=== PATIENT | male | born 1960 | race Caucasian/White ===

== ENCOUNTER 2018-08-08 11:44 | Observation (INO) | payer OTHER ==
--- NOTE | 2018-08-08 12:32 | RAD REPORT ---
EXAM DESCRIPTION: CT - Ct Stroke Brain Wo Cont - 08/08/2018 12:23 pm CLINICAL HISTORY: headache, aphasia, vision problems CVA symptomology COMPARISON: No comparisons TECHNIQUE: All CT scans are performed using dose optimization technique as appropriate and may inclu de automated exposure control or mA/KV adjustment according to patient size. FINDINGS: No intracranial hemorrhage, hydrocephalus or extra-axial fluid collection.No areas of brai n edema or evidence of midline shift. Several small mucous retention cyst or polyps are present left maxillary antrum. The paranasal sinuse s and mastoids are otherwise clear. The calvarium is intact. IMPRESSION: No acute intracranial abnormality. The findings were discussed with KEYANNA Ortega on 08/08/2018 at 12:27 p.m. by telephone.
[2018-08-08 12:55] LABS: Absolute Monocytes 0.5 K/uL (0.1-1.3); Absolute Neutrophil 6.6 K/uL (1.8-8.0); Basophils % 0.6 % (0-1.3); Eosinophils % 0.7 % (0-4.4); Hematocrit 53.4 % (39.6-49.0); Lymphocytes % 11.9 % (15.3-44.8); Monocytes % 6.3 % (3.3-12.3); RBC Red Blood Cell Count 5.76 M/uL (4.33-5.43)
[2018-08-08 12:59] LABS: Protime INR 0.93
--- NOTE | 2018-08-08 13:07 | RAD REPORT ---
EXAM DESCRIPTION: Brenna Single View08/08/2018 12:58 pm CLINICAL HISTORY: Chest pain COMPARISON: 2014 FINDINGS: The lungs appear clear of acute infiltrate. The heart is normal size IMPRESSION: No acute abnormalities displayed
[2018-08-08 13:10] LABS: Potassium 4.6 mmol/L (3.5-5.1)
[2018-08-08] MEDS ORDERED: DIAZEPAM 5 MG TABLET ONE (13:10)
[2018-08-08] MEDS ORDERED: NA CHLORIDE 0.9% 1,000 ML ONE ×2 (14:11→14:13)
[2018-08-08] MEDS ORDERED: LORazepam 2 MG/ML VIAL ONE (14:13)
--- NOTE | 2018-08-08 15:40 | RAD REPORT ---
EXAM DESCRIPTION: MRI - Brain W/Wo Cont - 08/08/2018 3:25 pm CLINICAL HISTORY: Blurred vision COMPARISON: August 08, [address] TECHNIQUE: Axial, sagittal, and coronal magnetic images of the brain were obtained. 20 cc MultiHance administered intravenously FINDINGS: Minimal signal within periventricular and deep white matter may represent ischemic changes secondary to small vessel disease. . The ventricles are normal in caliber. Diffusion-weighted sequences do not demonstrate evidence of an acute infarction. No abnormal enhancement within the brain is seen. An extra-axial fluid collection is not noted. Fluid within the sinuses/mastoids is not seen. Mucus retention cysts within the maxillary sinuses IMPRESSION: No acute intracranial abnormality is noted.
--- NOTE | 2018-08-08 15:43 | RAD REPORT ---
EXAM DESCRIPTION: MRI - MRA Head Wo Cont - 08/08/2018 3:25 pm CLINICAL HISTORY: Syncope COMPARISON: None. TECHNIQUE: Magnetic resonance angiogram was performed. 3D MIPS reconstruction performed FINDINGS: The anterior cerebral, middle cerebral, posterior cerebral, distal internal carotid and ba silar arteries do not demonstrate a significant stenosis. A1 segment of the right anterior cerebral artery is hypoplastic An aneurysm is not displayed. IMPRESSION: No significant abnormality displayed
--- NOTE | 2018-08-08 15:46 | RAD REPORT ---
EXAM DESCRIPTION: MRI - MRA Neck W/Wo Cont - 08/08/2018 3:25 pm CLINICAL HISTORY: Blurred vision COMPARISON: None. TECHNIQUE: Magnetic resonance angiogram of the neck was performed. 20 cc MultiHance was administered intravenously. 3D MIPS reconstruction performed FINDINGS: The common carotid, internal carotid and external carotid arteries do not demonstrate a si gnificant stenosis. An aneurysm is not seen. Mild plaque is present within the carotid arteries Moderate narrowing of proximal right vertebral artery. Left vertebral artery is unremarkable IMPRESSION: Moderate narrowing of the proximal right vertebral artery. Mild plaque within the carotid arteries NASCET criteria used. Mild 0-49% stenosis Moderate 50-69% stenosis Severe 70-99% stenosis
--- NOTE | 2018-08-08 16:11 | ER ---
Nurse's Notes [facility] Name: Carlos Enrique Peña Age: 57 yrs Sex: Male : 1960 Arrival Date: 08/08/2018 Time: 11:46 Bed 19 Private MD: Elvin Valderrama Diagnosis: Transient cerebral ischemic attack, unspecified Presentation: 08/08 11:58 Presenting complaint: Patient states: notice on Monday about 1100 that he was not able sv to get his words out correctly and had a headache all over that lasted about 10 mins. Pt stated he got up today around 0500 and felt fine, drove to work and about 0730 he started have a severe AUGUSTIN all over and now it is behind his left eye and was not able to get his words out correctly again and his vision went white. Pt sent by Dr Valderrama. Transition of care: patient was not received from another setting of care. Onset of symptoms was August 05, 2018. Care prior to arrival: None. 11:58 Method Of Arrival: Ambulatory sv 11:58 Acuity: LAURA 3 sv 12:30 No acute neurological deficit is noted. Pre-hospital glucose is not applicable to this ph patient. Risk Assessment: Do you want to hurt yourself or someone else? Patient reports no desire to harm self or others. Initial Sepsis Screen: Does the patient meet any 2 criteria? No. Patient's initial sepsis screen is negative. Does the patient have a suspected source of infection? No. Patient's initial sepsis screen is negative. Stroke Activation: Symptom onset > 6 hours Physician: Stroke Attending; Name: ; Notified At: ; Arrived At: Physician: Chief Stroke Resident; Name: ; Notified At: ; Arrived At: Physician: Stroke Resident; Name: ; Notified At: ; Arrived At: Physician: ED Attending; Name: ; Notified At: ; Arrived At: Physician: ED Resident; Name: ; Notified At: ; Arrived At: Historical: - Allergies: 12:00 No Known Allergies; sv - PMHx: 12:00 Diabetes - IDDM; sv - PSHx: 12:00 Appendectomy; sv - Immunization history:: Adult Immunizations unknown. - Social history:: Smoking status: Patient/guardian denies using tobacco. - Family history:: not pertinent. - Ebola Screening: : No symptoms or risks identified at this time. - Hospitalizations: : No recent hospitalization is reported. Screenin:28 Abuse screen: Denies threats or abuse. Denies injuries from another. Nutritional ph screening: No deficits noted. Tuberculosis screening: No symptoms or risk factors identified. Fall Risk None identified. Assessment: 12:01 VAN Scoring: Arm Drift: Patients demonstrates NO arm weakness. Patient is VAN Negative. sv Visual Disturbance: No visual disturbance noted. Aphasia: No aphasia noted. Neglect: No neglect noted. 12:30 Pain: Denies pain. ph 13:00 Patient has been NPO before screening. The patient is alert, and able to follow ph commands. The patient does not exhibit slurred or garbled speech. The patient is not exhibiting difficulty speaking. The patient does not exhibit difficulty understanding words. The patient is able to swallow own secretions with no drooling or need for suction. Patient tolerated one teaspoon of water. No drooling, immediate coughing, gurgling, or clearing of the throat was noted. The patient tolerated 90mL of water. No drooling, immediate coughing, gurgling, or clearing of the throat was noted. The patient passed the bedside swallow screening. Oral medications may be given as ordered. Contact Physician for further diet orders. Provider notified of bedside swallow screening results: Skip Stewart MD. 13:00 General: Appears in no apparent distress. comfortable, slender, well groomed, Behavior ph is calm, cooperative, appropriate for age, Denies fever, feeling ill. Neuro: Level of Consciousness is awake, alert, obeys commands, Oriented to person, place, time, situation, Electrotyper Apprentice are equal bilaterally Moves all extremities. Full function Gait is steady, Speech is normal, Facial symmetry appears normal, Facial symmetry: tongue is midline, Pupils are PERRLA, Intact Reports Headache, visual disturbance and difficulty speaking this morning, episode lasted approx 30 min, denies these symptoms at this time. Denies weakness dizziness, difficulty swallowing. 13:00 T-PA (Activase) Screening: Indications: Definite evidence of stroke, ischemic, embolic, ph or hypertensive: No. Treatment will start within 4.5 hours onset of symptoms: No. Contraindications: Patient reports onset of signs and symptoms of stroke greater than 6 hours ago: Yes. Cardiovascular: Denies chest pain, lightheadedness, Capillary refill < 3 seconds in bilateral fingers Patient's skin is warm and dry. Rhythm is sinus rhythm. Respiratory: Airway is patent Respiratory effort is even, unlabored. GI: No signs and/or symptoms were reported involving the gastrointestinal system. Derm: Skin is intact, is healthy with good turgor, Skin is pink, warm \T\ dry. Musculoskeletal: Circulation, motion, and sensation intact. Range of motion: intact in all extremities. 14:00 Reassessment: Patient appears in no apparent distress at this time. Patient and/or ph family updated on plan of care and expected duration. Pain level reassessed. Patient is alert, oriented x 3, equal unlabored respirations, skin warm/dry/pink. Pt taken to MRI. 15:00 Reassessment: Pt remains in radiology for MRI study, family at bedside. 16:30 Reassessment: Patient appears in no apparent distress at this time. Patient and/or ph family updated on plan of care and expected duration. Pain level reassessed. Pt resting quietly w/ eyes closed, respirations even and unlabored, denies pain at this time, SO at bedside. 17:30 Reassessment: Patient appears in no apparent distress at this time. Patient and/or ph family updated on plan of care and expected duration. Pain level reassessed. Patient is alert, oriented x 3, equal unlabored respirations, skin warm/dry/pink. Attempted to call report, placed on hold >5 min, will call again. 17:40 Reassessment: Patient appears in no apparent distress at this time. Report called to farzana Maldonado. Vital Signs: 12:00 BP 138 / 80; Pulse 80; Resp 16; Pulse Ox 98% ; Weight 94.8 kg; Height 5 ft. 10 in. sv (177.80 cm); Pain 3/10; 13:00 BP 137 / 81; Pulse 81; Resp 18; Pulse Ox 98% on R/A; ph 13:59 BP 142 / 72; Pulse 100; Resp 25; Pulse Ox 96% on R/A; mh5 15:30 ph 16:30 BP 127 / 78; Pulse 78; Resp 16; Pulse Ox 98% on R/A; ph 17:03 BP 132 / 82; Pulse 81; Resp 18; Temp 98.0; Pulse Ox 97% on R/A; ph 12:00 Body Mass Index 29.99 (94.80 kg, 177.80 cm) sv 15:[address] ph NIH Stroke Scale Scores: 12:30 NIHSS Score: 0 ph ED Course: 11:46 Patient arrived in ED. mr 11:46 Elvin Valderrama MD is Private Physician. mr 12:00 Triage completed. sv 12:00 Arm band placed on. sv 12:02 Skip Stewart MD is Attending Physician. rn 12:18 CT completed. Patient tolerated procedure well. Patient moved to CT via wheelchair. sj Patient moved back from CT. 12:20 Placed in gown. Bed in low position. Call light in reach. Side rails up X 1. Warm jp3 blanket given. Pillow given. 12:20 monitor car operator on. Pulse ox on. NIBP on. jp3 12:25 CT Stroke Brain w/o Contrast In Process Unspecified. EDMS 12:45 Inserted saline lock: 20 gauge in right antecubital area, using aseptic technique. ph 12:47 Ptt, Activated Sent. jp3 12:48 Protime (+inr) Sent. jp3 12:48 CBC with Diff Sent. jp3 12:48 Basic Metabolic Panel Sent. jp3 12:53 Haley Alcantar, RN is Primary Nurse. ph 12:56 X-ray completed. Portable x-ray completed in exam room. Patient tolerated procedure jb2 well. 12:58 Stroke CXR 1 View In Process Unspecified. EDMS 13:04 Diet: Patient given snack. mh5 15:25 MRA Head Wo Cont In Process Unspecified. EDMS 15:25 Brain W/Wo Cont In Process Unspecified. EDMS 15:25 MRA Neck W/Wo Cont In Process Unspecified. EDMS 16:10 Elvin Valderrama MD is Hospitalizing Provider. rn 18:05 No provider procedures requiring assistance completed. Patient admitted, IV remains in ph place. Administered Medications: 13:04 Drug: Valium 5 mg Route: PO; ph 17:27 Follow up: Response: No adverse reaction ph 14:04 Drug: NS 0.9% 1000 ml Route: IV; Rate: 1000 ml; Site: right antecubital; aj1 15:30 Follow up: Response: No adverse reaction; IV Status: Completed infusion ph 14:05 Drug: Ativan 0.5 mg Route: IVP; Site: right antecubital; aj1 17:27 Follow up: Response: No adverse reaction ph 17:04 Drug: PlaVIX 75 mg Route: PO; ph 17:28 Follow up: Response: No adverse reaction ph Outcome: 16:10 Decision to Hospitalize by Provider. rn 18:07 Patient left the ED. ss 18:07 Admitted to Tele accompanied by tech, family with patient, via wheelchair, with chart. ph 18:07 Condition: stable 18:07 Instructed on the need for admit. NIH Stroke Scale - NIH Stroke Score Date: 08/08/2018 Time: 12:30 Total Score = 0 1a. Level of Consciousness (LOC) - 0(Alert) 1b. Level of Consciousness (LOC) (Year \T\ Age) - 0(Both) 1c. LOC Commands (Open \T\ Closes Eyes/Inventory Associate) - 0(Both) 2. Best Gaze (Lateral Gaze Paresis) - 0(Normal) 3. Visual Field Loss - 0(No visual loss) 4. Facial Palsy - 0(Normal) 5a. Left Arm: Motor (10-second hold) - 0(No drift) 5b. Right Arm: Motor (10-second hold) - 0(No drift) 6a. Left Leg: Motor (5-second hold - always test supine) - 0(No drift) 6b. Right Leg: Motor (5-second hold - always test supine) - 0(No drift) 7. Limb Ataxia (finger/nose \T\ heel/tolentino - test with eyes open) - 0(Absent) 8. Sensory Loss (pinprick arms/legs/face) - 0(Normal) 9. Best Language: Aphasia (description/naming/reading) - 0(No aphasia) 10. Dysarthria (speech clarity - read or repeat words) - 0(Normal) 11. Extinction and Inattention (visual/tactile/auditory/spatial/personal) - 0(No abnormality) Initials: ph Signatures: Dispatcher [employer] EDMS Lashell Marcial RN RN aj1 Verde, Stephanie RN Rose Rodrigez mr Ewing, Valerie Galdamez Roman, MD MD rn Smirch, Shelby, RN RN ss Hall, Patricia, RN RN ph Martinez, Maria 5 Leonardo Botello jp3 Corrections: (The following items were deleted from the chart) 17:37 14:00 Reassessment: Patient appears in no apparent distress at this time. ph Patient and/or family updated on plan of care and expected duration. Pain level reassessed. Patient is alert, oriented x 3, equal unlabored respirations, skin warm/dry/pink. ph 19:46 12:30 General: Appears in no apparent distress. comfortable, slender, well ph groomed, Behavior is calm, cooperative, appropriate for age, Denies fever, feeling ill, ph 19:46 12:30 Neuro: Level of Consciousness is awake, alert, obeys commands, Oriented ph to person, place, time, situation, Electrotyper Apprentice are equal bilaterally Moves all extremities. Full function Gait is steady, Speech is normal, Facial symmetry appears normal, Facial symmetry: tongue is midline, Pupils are PERRLA, Intact Reports Headache, visual disturbance and difficulty speaking this morning, episode lasted approx 30 min, denies these symptoms at this time. ph
--- NOTE | 2018-08-08 16:11 | EDPHYS ---
Physician Documentation [facility] Name: Carlos Enrique Peña Age: 57 yrs Sex: Male : 1960 Arrival Date: 08/08/2018 Time: 11:46 Bed 19 Private MD: Elvin Valderrama ED Physician Skip Stewart HPI: 08/08 12:59 This 57 yrs old Male presents to ER via Ambulatory with complaints of rn Headache, Vision Problem. 12:59 The patient complains of pain to the forehead. rn 12:59 The patient presents to the emergency department with a speech or higher order brain rn function problem, a vision problem. Onset: The symptoms/episode began/occurred 3 day(s) ago. Severity of symptoms: At their worst the symptoms were moderate in the emergency department the symptoms have resolved. Current symptoms: Currently, the patient is not experiencing any symptoms. The patient has experienced similar episodes in the past. Reports 2-3 episodes of vision loss, not able to get the right words out, and headache, no trauma, takes baby aspirin, no hx of [place] or stroke. Currently asymptomatic. Sent by Dr. Valderrama. . Historical: - Allergies: 12:00 No Known Allergies; sv - PMHx: 12:00 Diabetes - IDDM; sv - PSHx: 12:00 Appendectomy; sv - Immunization history:: Adult Immunizations unknown. - Social history:: Smoking status: Patient/guardian denies using tobacco. - Family history:: not pertinent. - Ebola Screening: : No symptoms or risks identified at this time. - Hospitalizations: : No recent hospitalization is reported. ROS: 12:59 Constitutional: Negative for fever, chills, and weight loss, Eyes: Negative for injury, rn pain, redness, and discharge, Neck: Negative for injury, pain, and swelling, Cardiovascular: Negative for chest pain, palpitations, and edema, Respiratory: Negative for shortness of breath, cough, wheezing, and pleuritic chest pain, Abdomen/GI: Negative for abdominal pain, nausea, vomiting, diarrhea, and constipation, MS/Extremity: Negative for injury and deformity, Skin: Negative for injury, rash, and discoloration, Neuro: + headache, + vision deficit, + speech problem, no focal weakness or numbness Exam: 12:58 ECG was reviewed by the Attending Physician. rn 12:59 Constitutional: This is a well developed, well nourished patient who is awake, alert, rn and in no acute distress. Head/Face: Normocephalic, atraumatic. Eyes: Pupils equal round and reactive to light, extra-ocular motions intact. Lids and lashes normal. Conjunctiva and sclera are non-icteric and not injected. Cornea within normal limits. Periorbital areas with no swelling, redness, or edema. Cardiovascular: Regular rate and rhythm. No pulse deficits. Respiratory: Lungs have equal breath sounds bilaterally, clear to auscultation. No increased work of breathing, no retractions or nasal flaring. Abdomen/GI: soft, non-tender MS/ Extremity: Pulses equal, no cyanosis. Neurovascular intact. Full, normal range of motion. Equal circumference. Neuro: Awake and alert, GCS 15, oriented to person, place, time, and situation. Cranial nerves II-XII grossly intact. Motor strength 5/5 in all extremities. Sensory grossly intact. Cerebellar exam normal. Vital Signs: 12:00 BP 138 / 80; Pulse 80; Resp 16; Pulse Ox 98% ; Weight 94.8 kg; Height 5 ft. 10 in. sv (177.80 cm); Pain 3/10; 13:00 BP 137 / 81; Pulse 81; Resp 18; Pulse Ox 98% on R/A; ph 13:59 BP 142 / 72; Pulse 100; Resp 25; Pulse Ox 96% on R/A; mh5 15:30 ph 16:30 BP 127 / 78; Pulse 78; Resp 16; Pulse Ox 98% on R/A; ph 17:03 BP 132 / 82; Pulse 81; Resp 18; Temp 98.0; Pulse Ox 97% on R/A; ph 12:00 Body Mass Index 29.99 (94.80 kg, 177.80 cm) sv 15:[address] ph NIH Stroke Scale Scores: 12:30 NIHSS Score: 0 ph MDM: 12:02 Patient medically screened. rn 12:16 ED course: NIH 0 currently, has stuttering symptoms since Monday, each episode < 30 rn min, and consists of word salad, vision problems, and headache. . 12:39 ED course: No acute finding on ct head, blood work pending, will try to get MRI. rn 14:01 ED course: pt requesting more medication for sedation prior to MRI, states severe rn claustrophobia. . 16:09 Data reviewed: vital signs, nurses notes, lab test result(s), EKG, radiologic studies, rn CT scan, MRI, and as a result, I will admit patient. Counseling: I had a detailed discussion with the patient and/or guardian regarding: the historical points, exam findings, and any diagnostic results supporting the discharge/admit diagnosis, lab results, radiology results, the need for further work-up and treatment in the hospital. Response to treatment: the patient's symptoms have resolved after treatment, the patient's condition has returned to base line, the patient is now symptom free, and as a result, I will admit patient. Admission orders: after a detailed discussion of the patient's condition and case, the admit orders are written by me. ED course: Pt without CVA on MRI, consulted with Dr. Valderrama will admit for TIA/CVA w/u, will place consult for Dr. Marvin. . 08/08 12:03 Order name: Basic Metabolic Panel; Complete Time: 13: rn 08/08 12:03 Order name: CBC with Diff; Complete Time: 13: rn 08/08 12:03 Order name: Protime (+inr); Complete Time: 13: rn 08/08 12:03 Order name: Ptt, Activated; Complete Time: 13: rn 08/08 12:03 Order name: CT Stroke Brain w/o Contrast; Complete Time: 12:39 08/08 12:43 Order name: Glucose, Ancillary Testing; Complete Time: 13:22 EDMT 08/08 12:03 Order name: Stroke CXR 1 View; Complete Time: 13:22 rn 08/08 14:18 Order name: MRA Head Wo Cont; Complete Time: 15:50 EDMS 08/08 14:18 Order name: Brain W/Wo Cont; Complete Time: 15:50 EDMS 08/08 14:18 Order name: MRA Neck W/Wo Cont; Complete Time: 15:50 EDMS 08/08 12:03 Order name: EKG; Complete Time: 12:05 08/08 12:03 Order name: Accucheck; Complete Time: 12:47 rn 08/08 12:03 Order name: Cardiac monitoring; Complete Time: 12:47 rn 08/08 12:03 Order name: EKG - Nurse/Tech; Complete Time: 12:47 rn 08/08 12:03 Order name: IV Saline Lock; Complete Time: 12:47 rn 08/08 12:03 Order name: Labs collected and sent; Complete Time: 12:47 rn 08/08 12:03 Order name: NPO; Complete Time: 12:47 rn 08/08 12:03 Order name: O2 Per Protocol; Complete Time: 12:48 rn 08/08 12:03 Order name: O2 Sat Monitoring; Complete Time: 12:48 rn 08/08 12:03 Order name: Stroke Swallow Screen; Complete Time: 13:04 rn 08/08 16:13 Order name: CONS Physician Consult EDMS EC:58 Rate is 85 beats/min. Rhythm is regular. QRS [place] is Normal. AL interval is normal. QRS rn interval is normal. QT interval is normal. No Q waves. T waves are Normal. No ST changes noted. Clinical impression: Normal ECG. Interpreted by me. Administered Medications: 13:04 Drug: Valium 5 mg Route: PO; ph 17:27 Follow up: Response: No adverse reaction ph 14:04 Drug: NS 0.9% 1000 ml Route: IV; Rate: 1000 ml; Site: right antecubital; aj1 15:30 Follow up: Response: No adverse reaction; IV Status: Completed infusion ph 14:05 Drug: Ativan 0.5 mg Route: IVP; Site: right antecubital; aj1 17:27 Follow up: Response: No adverse reaction ph 17:04 Drug: PlaVIX 75 mg Route: PO; ph 17:28 Follow up: Response: No adverse reaction ph Disposition: 08/08/18 16:10 Hospitalization ordered by Elvin Valderrama for Inpatient Admission. Preliminary diagnosis is Transient cerebral ischemic attack, unspecified. - Bed requested for Telemetry/MedSurg (Inpatient). - Status is Inpatient Admission. ss - Condition is Stable. - Problem is new. - Symptoms have improved. UTI on Admission? No NIH Stroke Scale - NIH Stroke Score Date: 08/08/2018 Time: 12:30 Total Score = 0 1a. Level of Consciousness (LOC) - 0(Alert) 1b. Level of Consciousness (LOC) (Year \T\ Age) - 0(Both) 1c. LOC Commands (Open \T\ Closes Eyes/Yeast Cake Cutter) - 0(Both) 2. Best Gaze (Lateral Gaze Paresis) - 0(Normal) 3. Visual Field Loss - 0(No visual loss) 4. Facial Palsy - 0(Normal) 5a. Left Arm: Motor (10-second hold) - 0(No drift) 5b. Right Arm: Motor (10-second hold) - 0(No drift) 6a. Left Leg: Motor (5-second hold - always test supine) - 0(No drift) 6b. Right Leg: Motor (5-second hold - always test supine) - 0(No drift) 7. Limb Ataxia (finger/nose \T\ heel/tolentino - test with eyes open) - 0(Absent) 8. Sensory Loss (pinprick arms/legs/face) - 0(Normal) 9. Best Language: Aphasia (description/naming/reading) - 0(No aphasia) 10. Dysarthria (speech clarity - read or repeat words) - 0(Normal) 11. Extinction and Inattention (visual/tactile/auditory/spatial/personal) - 0(No abnormality) Initials: ph Signatures: Dispatcher [employer] [facility] Summer Trinidad Angela, RN RN aj1 Henrietta Healy RN RN sv Skip Stewart MD MD rn Smirch, Shelby, RN RN ss Hall, Patricia, RN RN ph Corrections: (The following items were deleted from the chart) 13:03 12:59 Constitutional: Negative for fever, chills, and weight loss, furniture upholstery mechanic: Negative for chest pain, palpitations, and edema, Respiratory: Negative for shortness of breath, cough, wheezing, and pleuritic chest pain, Abdomen/GI: Negative for abdominal pain, nausea, vomiting, diarrhea, and constipation, MS/Extremity: Negative for injury and deformity, Skin: Negative for injury, rash, and discoloration, Neuro: + headache, + vision deficit, + speech problem, no focal weakness or numbness rn 14:18 12:41 MR STROKE PROTOCOL+MRI.RAD.BRZ ordered. [facility] 16:45 16:10 Hospitalization Ordered by Elvin Valderrama MD for Inpatient Admission. bd Preliminary diagnosis is Transient cerebral ischemic attack, unspecified. Bed requested for Telemetry/MedSurg (Inpatient). Status is Inpatient Admission. Condition is Stable. Problem is new. Symptoms have improved. UTI on Admission? No. rn 18:07 16:45 08/08/2018 16:10 Hospitalization Ordered by Elvin Valderrama MD for ss Inpatient Admission. Preliminary diagnosis is Transient cerebral ischemic attack, unspecified. Bed requested for Telemetry/MedSurg (Inpatient). Status is Inpatient Admission. Condition is Stable. Problem is new. Symptoms have improved. UTI on Admission? No. bd
[2018-08-08] MEDS ORDERED: CLOPIDOGREL 75 MG TABLET ONE (17:19)
[2018-08-08] MEDS ORDERED: FAMOTIDINE 20 MG/2 ML VIAL IV ONE (17:19)
--- NOTE | 2018-08-08 17:50 | EKG ---
Test Date: 2018-08-08 Test Time: 12:27:15 Angledozer Operator: CONCEPCION MEASUREMENT RESULTS: Intervals: Rate: 85 MO: 178 QRSD: 92 QT: 366 QTc: 435 [place]: P: 53 MO: 178 QRS: -6 T: 49 INTERPRETIVE STATEMENTS: Normal sinus rhythm Normal ECG Compared to ECG 08/31/2000 08:14:00 Sinus bradycardia no longer present Electronically Signed On 08-08-18 17:49:50 CDT by Warren Ibarra
[2018-08-08] MEDS: INSULIN -REGULAR HUMAN 50 UNIT/0.5 ML ML SQ SCH ×2 (18:25→20:40)
[2018-08-08] MEDS: NA CHLORIDE 0.9% 1,000 ML IV SCH (18:43)
--- NOTE | 2018-08-08 20:05 | RAD REPORT ---
EXAM DESCRIPTION: USCarotid Artery Bilateral08/08/2018 7:55 pm CLINICAL HISTORY: tia FINDINGS: The velocity of the right internal carotid artery equals 112 cm/sec. The right ICA/CCA rat io 1.1 The velocity of the left internal carotid artery equals 125 cm/sec. The left ICA/CCA ratio .7 Mild plaque is present within the carotid arteries. Proximal internal carotid arteries are tortuous The vertebral arteries demonstrate antegrade flow IMPRESSION: Mild plaque within the carotid arteries without evidence of a hemodynamically significan t stenosis NASCET criteria used. Mild 0-49% stenosis Moderate 50-69% stenosis Severe 70-99% stenosis
[2018-08-09] MEDS: NA CHLORIDE 0.9% 1,000 ML IV SCH ×2 (04:27→07:45)
[2018-08-09] MEDS: INSULIN -REGULAR HUMAN 50 UNIT/0.5 ML ML SQ SCH ×2 (07:30→11:30)
[2018-08-09] MEDS ORDERED: CLOPIDOGREL 75 MG TABLET PO SCH (09:00)
--- NOTE | 2018-08-09 11:04 | ECHO ---
HEIGHT: 5 ft 10 in WEIGHT: 208 lb 0 oz DATE OF STUDY: 08/09/[address]: Skip Stewart JR, MD 2-DIMENSIONAL: YES M.MODE: YES DOPPLER: YES COLOR FLOW: YES TDS: NO PORTABLE: NO DEFINITY: NO BUBBLE STUDY: NO DIAGNOSIS: TRANSIENT ISCHEMIC ACCIDENT CARDIAC HISTORY: CATHERIZATION: NO SURGERY: NO PROSTHETIC VALVE: NO PACEMAKER: NO MEASUREMENTS (cm) DIASTOLIC (NORMALS) SYSTOLIC (NORMALS) IVSd 1.0 (0.6-1.2) LA Diam 3.8 (1.9-4.0) LVEF 60% LVIDd 4.6 (3.5-5.7) LVIDs 3.2 (2.0-3.5) %FS 32% LVPWd 1.0 (0.6-1.2) Ao Diam 3.2 (2.0-3.7) 2 DIMENSIONAL ASSESSMENT: RIGHT ATRIUM: NORMAL LEFT ATRIUM: NORMAL RIGHT VENTRICLE: NORMAL LEFT VENTRICLE: NORMAL TRICUSPID VALVE: NORMAL MITRAL VALVE: NORMAL PULMONIC VALVE: NORMAL AORTIC VALVE: NORMAL PERICARDIAL EFFUSION: NONE AORTIC ROOT: NORMAL LEFT VENTRICULAR WALL MOTION: NORMAL. DOPPLER/COLOR FLOW: PHYSIOLOGIC TRICUSPID REGURGITATION. NORMAL RIGHT VENTRICULAR SYSTOLIC PRESSURE. COMMENTS: NORMAL 2D ECHOCARDIOGRAM WITH DOPPLER. TECHNOLOGIST: KAVON REYNOLDS RDCS
[2018-08-09 12:37] LABS: Urine Appearance CLEAR; Urine Bilirubin NEGATIVE (NEG); Urine Blood NEGATIVE (NEG); Urine Color YELLOW; Urine Glucose 3+ (NEG); Urine Protein NEGATIVE (NEG); Urine Specific Gravity 1.025 (1.005-1.030); Urine Urobilinogen 0.2 mg/dL (0.2-1.0); Urine pH 6.5 (5.0-7.0)
[2018-08-09 12:38] LABS: Urine Microscopic Reflex NO UMIC
--- NOTE | 2018-08-09 18:58 | CON ---
Reason For Consultation: Consultation called by Dr. Valderrama because of TIA. History Of Present Illness: Mr. Peña is a 57-year-old right-handed patient with hyperte nsion, diabetes mellitus, dyslipidemia, and remote history of tobacco use, who was in his usual state of normal health until last Monday when he had sudden onset difficulty getting his words out. The [employer] is in the room and helped with information. They were in line to buy lunch, when he ca me to the counter and was on unable to identify pork chops, which is what he wanted to eat. He said he realized he had a problem getting his socks out and stumbled around for words, but could not get t hem out. During this time, his looked at him and realized he had a problem getting his words out . His face was symmetric. He did not have eye deviation. There was no repetitive activity or movem ent of the arms and legs. He did maintain his posture and he was essentially with the help of his wi fe able to order food and they sat down and ate and the difficulty with expression continued for a to kapil of about 10 minutes. He said after eating about 30 minutes to an hour later he developed a heada billy that was [id number] in intensity involving the whole head and few hours later, the headache resolved. He did not seek medical attention at that time. He returned to his baseline normal funct ioning and did well until the following Monday when he had a similar, but more intense episode whi le at work. He was looking at a spread sheet on his computer, when he suddenly could not see the pan tral area of the computer and began to feel a little dizzy in his head and he immediately called his and as he tried to express himself, again he could get his thoughts out. His said his spee ch was not slurred, just the content did not make sense. This activity continued for about 20-30 min utes and was followed by a more intense headache for few hours. He subsequently came to the [facility] for an evaluation. His head CT scan was unremarkable for any acute ischemic or hemorrhag ic change. His brain MRI did not identify any abnormalities. There was minimal periventricular smal l vessel ischemic disease. No acute ischemic or hemorrhagic change. MRA of his head showed no abnor malities. Carotid artery ultrasound of his neck showed no evidence of hemodynamically significant st enosis. His neck magnetic resonance angiogram was remarkable for moderate proximal narrowing of the right vertebral artery and mild plaque in the carotid arteries. Echocardiogram showed ejection fract ion of 60% and was a normal study. His electrocardiogram and telemetry monitoring showed normal sinu s rhythm and normal studies. Blood work showed evidence of mild dehydration, slightly elevated red b lood cells, hemoglobin, hematocrit. White blood cell count was normal. Neutrophil was 80.5. His BU N slightly elevated to 20, creatinine 1.03, glucose ranged from 68-169. His triglycerides slightly e levated at 159. Total cholesterol 123, LDL 54, HDL 37. His cholesterol HDL ratio was 3.32. The patient said he was taking a small aspirin on a regular basis and actually would rarely miss, may be once or twice a month. He believes his cholesterol was out of control, although blood work is con trary to that and in the past had not optimized control of blood sugars, but that seems to be better as well. His blood pressures also were essentially in good range. Since his admission to the hospital, he denies any additional episodes besides the 2 events. Past Medical History: Includes hypertension, dyslipidemia, diabetes mellitus. Past Surgical History: Appendectomy. Allergies: NO KNOWN DRUG ALLERGIES. Medications At Home: Aspirin 81 mg daily. He also takes cholesterol medications, medicines for diab etes mellitus. Family History: Diabetes mellitus is in grandparents and brother also has diabetes mellitus. Review of Systems: He denies any recent fevers, chills, nausea, vomiting, myalgias, arthralgias, headache, weight change , rash. No psychiatric complaints. No gastrointestinal complaints. No genitourinary complaints. Social History: He admits to drinking about 5 cups of coffee daily. Says he does drink water, but i t is not clear actually how much water he drinks. He did smoke in the past, about 2 packs of cigaret thong a day for about 50 years and quit about 20+ years ago. No heavy alcohol. No IV drug use. No ri kendrick behaviors. Physical Examination: Vital Signs: Blood pressure 116/66, pulse 84, respiratory rate 14, temperature 98.5, oxygen saturati on 95%. Weight 208 pounds, height 5 feet 10 inches, BMI 29.8. General: Mr. Peña is resting in bed. He is in no acute distress. HEENT: He is normocephalic, atraumatic. Sclerae anicteric. Oropharynx is moist and pink. Neck: Supple. Chest: Clear. Heart: Regular. Extremities: Show no edema, cyanosis, or clubbing. Neurologic: He is alert and oriented to situation, place, and person. Follows commands appropriatel y. He has no expressive or receptive aphasias. His cranial nerves 2 through 12 are intact by examin ation. Motor examination; 5/5 strength proximally and distally in the arms and legs. Sensory exam i ntact in upper and lower extremities to light touch, pinprick, temperature, and vibration. Coordinat ion intact in upper and lower extremities for emzxxd-so-pkwb, hcze-rw-[id number]. Reflexes at the patellae 1+, at the heel 0, and 1+ at the biceps and triceps. His gait shows good stance, stride, and arm sw ing and negative Romberg's. Assessment: Mr. Peña is a 57-year-old patient with most likely transient ischemic attacks in the setting of hypertension, diabetes, dyslipidemia, and mild dehydration. He does drink an excessive am ount of coffee and has remote history of tobacco use. He was taking an aspirin 81 mg daily during th is event. Plan: 1.The patient should be on aspirin 81 mg along with Plavix 75 mg with folate 1 mg daily. 2.Continue with aggressive management of dyslipidemia to reduce stroke risk. 3.His HDL is elevated in the hospital and LDL 70 or less. 4.Aggressive management of diabetes mellitus. 5.The patient is instructed on several risk modifying activities to reduce his stroke and myocardial infarction risk. 6.He WAS instructed to follow up in clinic 1 month after his discharge. JOHNY/NELLIE Voice ID: [id number] Report ID: [id number]
--- NOTE | 2018-08-11 06:53 | DS ---
Date of Discharge: 08/09/2018 SHORT-STAY SUMMARY The patient was admitted to the hospital after being seen in the office following a second episode fo r approximately 30 minutes. We had difficulty coping with using the proper words and with some orien tation problem as well according to the . There were no other symptoms, probability of it being TIAs, possible CVA was considered obviously as the most likely etiology and he was sent to the emerge ncy room for further evaluation. At that time, a workup for a CVA and TIA including MRI, MRA, echo, and carotid were all negative. However, since it was the second time around with high risk factors i ncluding diabetes and hypertension, it was felt he should be admitted and placed on telemetry and see n by neurologist. He had no further episodes during his hospitalization. His vital signs remained s table. Lab workup was normal. Neurologist, Dr. Marvin, felt it was more likely a TIA than any sei zure activity and he was placed on Plavix. Continue his aspirin. Monitor his blood sugars to make s ure they have been normal, which he says have been quite stable and has been followed by endocrinolog ist in [place] for this. He was discharged in good condition to follow up with myself, Dr. Marvin and his academic manager with a final diagnosis of TIA; multiple NIDDM, good control; hypertension, go od control. HR/MODL Voice ID: [id number] Report ID: [id number]
== END 2018-08-09 15:00 | disposition home or self-care (01) ==
LOC: ER 11:44 → INTOOBSV 16:11 → ERHOLD 16:11 → 2ND 17:25
PROVIDERS: ADMIT Family Medicine; ATTEND Family Medicine
DX: G45.9 Transient cerebral ischemic attack, unspecified (principal); I10 Essential (primary) hypertension; E11.9 Type 2 diabetes mellitus without complications; E86.0 Dehydration
CPT/HCPCS: 36415; 70450; 70544; 70549; 70553; 71045; 80048; 80061; 81003; 82962; 85025; 85610; 85730; 87086; 87088; 93005; 93306; 93880; 96361; 96374; 99285; A9577; G0378; J7030

== ENCOUNTER 2019-05-24 18:56 | Observation (INO) | payer OTHER ==
[2019-05-24] MEDS ORDERED: ASPIRIN EC 81 MG TAB PO ONE (19:32)
[2019-05-24] MEDS ORDERED: ACETAMINOPHEN 500 MG TAB PO PRN (19:32)
[2019-05-24] MEDS ORDERED: ONDANSETRON 4 MG/2 ML VIAL IV PRN (19:32)
[2019-05-24] MEDS ORDERED: MORPHINE 2 MG/ML SYR IV PRN (19:32)
[2019-05-24 19:35] LABS: Absolute Lymphocytes (CBC) 2.5 K/uL (0.7-4.9); Basophils % 0.8 % (0-1.3); Hematocrit 56.4 % (39.6-49.0); Lymphocytes % 28.4 % (15.3-44.8); MPV 9.3 fL (7.6-11.3); RBC Red Blood Cell Count 5.93 M/uL (4.33-5.43)
[2019-05-24 19:40] LABS: Protime INR 0.97
--- NOTE | 2019-05-24 19:48 | ER ---
Nurse's Notes [facility] Name: Carlos Enrique Peña Age: 58 yrs Sex: Male : 1960 Arrival Date: 05/24/2019 Time: 18:57 Bed 8 Private MD: Elvin Valderrama Diagnosis: Transient cerebral ischemic attack, unspecified Presentation: 05/24 19:13 Presenting complaint: Patient states: "I was having blurry vision with my right eye and jd3 I was talking funny. That started about 15 min ago. all the symptoms resolved after about 10 min. last time this happened I was told I had a TIA.". 19:13 Method Of Arrival: Ambulatory jd3 19:13 Transition of care: patient was not received from another setting of care. No acute jd3 neurological deficit is noted. Onset of symptoms was May 24, 2019 at 18:55. Risk Assessment: Do you want to hurt yourself or someone else? Patient reports no desire to harm self or others. Initial Sepsis Screen: Does the patient meet any 2 criteria? No. Patient's initial sepsis screen is negative. Does the patient have a suspected source of infection? No. Patient's initial sepsis screen is negative. Care prior to arrival: None. 19:13 Acuity: LAURA 2 jd3 Triage Assessment: 20:33 The onset of the patients symptoms was May 24, 2019 at 19:00. General: Appears in aj1 no apparent distress. comfortable. Stroke Activation: Symptom onset < 3 hours Physician: Stroke Attending; Name: ; Notified At: ; Arrived At: Physician: Chief Stroke Resident; Name: ; Notified At: ; Arrived At: Physician: Stroke Resident; Name: ; Notified At: ; Arrived At: Physician: ED Attending; Name: Dr. Ramirez; Notified At: 19:13; Arrived At: 19:13 Physician: ED Resident; Name: ; Notified At: ; Arrived At: Historical: - Allergies: 19:32 No Known Allergies; jd3 - Home Meds: 19:32 Jardiance 25 mg oral tab [Active]; Tresiba FlexTouch U-100 subcutaneous subcutaneous jd3 [Active]; Humalog Sub-Q [Active]; Crestor 20 mg oral tab [Active]; Altace Oral [Active]; testosterone [Active]; aspirin 81 mg Oral chew [Active]; Plavix 75 mg Oral tab [Active]; - PMHx: 19:32 Diabetes - IDDM; TIA; jd3 - PSHx: 19:32 Appendectomy; jd3 - Immunization history:: Adult Immunizations up to date. - Coronavirus screen:: The patient has NOT traveled to [place], [place], or [place] in the past 14 days. Proceed with normal triage process as indicated. The patient has NOT had contact with known/suspected case of Coronavirus?. - Social history:: Smoking status: Patient/guardian denies using tobacco, but has a distant history of tobacco abuse. - Ebola Screening: : Patient negative for fever greater than or equal to 101.5 degrees Fahrenheit, and additional compatible Ebola Virus Disease symptoms. Screenin:25 Abuse screen: Denies threats or abuse. Denies injuries from another. Nutritional aj1 screening: No deficits noted. Tuberculosis screening: No symptoms or risk factors identified. 20:33 Fall Risk None identified. aj1 Assessment: 19:13 Reassessment: Code stroke called by triage nurse. aj1 19:15 Reassessment: Patient transported to CT scan via stretcher, accompanied by primary RN. aj1 19:25 Reassessment: Labs drawn by Lola, filter tip catcher. aj1 19:25 Reassessment: Dr. Ramirez at bedside to evaluate patient. aj1 19:25 General: Appears in no apparent distress. comfortable, Behavior is calm, cooperative, aj1 appropriate for age. Pain: Denies pain. Neuro: Level of Consciousness is awake, alert, obeys commands, Oriented to person, place, time, situation, Manager [employer] are equal bilaterally Moves all extremities. Full function Gait is steady, Speech is normal, Facial symmetry appears normal, Pupils are PERRLA, Reports trouble speaking and walking that lasted approximately 10 minutes before resolving. Patient reports history of TIA. Cardiovascular: Heart tones S1 S2 present Patient's skin is warm and dry. Respiratory: Airway is patent Respiratory effort is even, unlabored, Respiratory pattern is regular, symmetrical. GI: No signs and/or symptoms were reported involving the gastrointestinal system. : No signs and/or symptoms were reported regarding the genitourinary system. EENT: No signs and/or symptoms were reported regarding the EENT system. Derm: No signs and/or symptoms reported regarding the dermatologic system. Skin is pink, warm \\T\\ dry. normal. Musculoskeletal: No signs and/or symptoms reported regarding the musculoskeletal system. Circulation, motion, and sensation intact. 19:28 Reassessment: FSBS 94. aj1 19:30 Reassessment: EKG done at bedside by myself. aj1 19:32 Reassessment: CXR done at bedside. aj1 19:36 Reassessment: Dr. Mckeon at bedside to evaluate patient. aj1 19:55 VAN Scoring: Arm Drift: Patients demonstrates NO arm weakness. Patient is VAN Negative. aj1 Visual Disturbance: No visual disturbance noted. Aphasia: No aphasia noted. Neglect: No neglect noted. T-PA (Activase) Screening: Contraindications: Other: symptoms have resolved. 20:25 Reassessment: Patient appears in no apparent distress at this time. No changes from aj1 previously documented assessment. Patient and/or family updated on plan of care and expected duration. Pain level reassessed. Patient is alert, oriented x 3, equal unlabored respirations, skin warm/dry/pink. 20:31 Patient has been NPO before screening. The patient is alert, and able to follow aj1 commands. The patient does not exhibit slurred or garbled speech. The patient is not exhibiting difficulty speaking. The patient does not exhibit difficulty understanding words. The patient is able to swallow own secretions with no drooling or need for suction. Patient tolerated one teaspoon of water. No drooling, immediate coughing, gurgling, or clearing of the throat was noted. The patient tolerated 90mL of water. No drooling, immediate coughing, gurgling, or clearing of the throat was noted. The patient passed the bedside swallow screening. Oral medications may be given as ordered. Contact Physician for further diet orders. Provider notified of bedside swallow screening results: Raman Ramirez MD. Vital Signs: 19:32 BP 139 / 92; Pulse 68; Resp 17 S; Temp 97.9(O); Pulse Ox 97% on R/A; Weight 86.18 kg jd3 (R); Height 5 ft. 10 in. (177.80 cm) (R); Pain 0/10; 20:33 BP 145 / 86; Pulse 71; Resp 18; Pulse Ox 100% on R/A; aj1 19:32 Body Mass Index 27.26 (86.18 kg, 177.80 cm) jd3 NIH Stroke Scale Scores: 19:55 NIHSS Score: 0 aj1 ED Course: 18:57 Patient arrived in ED. rg4 18:58 Elvin Valderrama MD is Private Physician. rg4 19:18 Lashell Marcial RN is Primary Nurse. aj1 19:21 Raman Ramirez MD is Attending Physician. kdr 19:22 CT Stroke Brain w/o Contrast In Process Unspecified. EDMS 19:25 Patient has correct armband on for positive identification. Bed in low position. Call aj1 light in reach. Side rails up X 1. 19:25 No provider procedures requiring assistance completed. aj1 19:26 Triage completed. jd3 19:32 Arm band placed on. jd3 19:38 Stroke CXR 1 View In Process Unspecified. EDMS 19:43 Joe Mckeon MD is Hospitalizing Provider. kdr 20:18 Carotid Artery Bilateral In Process Unspecified. EDMS 20:58 Report given to JORDI Messer on 4th floor. aj1 20:58 Patient admitted, IV remains in place. aj1 Administered Medications: No medications were administered Point of Care Testing: Blood Glucose: 19:28 Blood Glucose: 94 mg/dL; aj1 Ranges: Outcome: 19:44 Decision to Hospitalize by Provider. kdr 20:58 Admitted to Tele accompanied by tech, via wheelchair, with chart. aj1 20:58 Condition: good 20:58 Discharge instructions given to patient, Instructed on the need for admit, Demonstrated understanding of instructions. 21:04 Patient left the ED. aj1 NIH Stroke Scale - NIH Stroke Score Date: 05/24/2019 Time: 19:55 Total Score = 0 1a. Level of Consciousness (LOC) - 0(Alert) 1b. Level of Consciousness (LOC) (Year \\T\\ Age) - 0(Both) 1c. LOC Commands (Open \\T\\ Closes Eyes/Electric Meter Installer) - 0(Both) 2. Best Gaze (Lateral Gaze Paresis) - 0(Normal) 3. Visual Field Loss - 0(No visual loss) 4. Facial Palsy - 0(Normal) 5a. Left Arm: Motor (10-second hold) - 0(No drift) 5b. Right Arm: Motor (10-second hold) - 0(No drift) 6a. Left Leg: Motor (5-second hold - always test supine) - 0(No drift) 6b. Right Leg: Motor (5-second hold - always test supine) - 0(No drift) 7. Limb Ataxia (finger/nose \\T\\ heel/tolentino - test with eyes open) - 0(Absent) 8. Sensory Loss (pinprick arms/legs/face) - 0(Normal) 9. Best Language: Aphasia (description/naming/reading) - 0(No aphasia) 10. Dysarthria (speech clarity - read or repeat words) - 0(Normal) 11. Extinction and Inattention (visual/tactile/auditory/spatial/personal) - 0(No abnormality) Initials: re Signatures: Dispatcher [employer] Lashell Diego RN RN aj1 Raman Ramirez MD MD kdr Garcia, Rubi rg4 Bryan Mata RN RN jd3 Corrections: (The following items were deleted from the chart) 19:39 19:36 Reassessment: Dr. Mckeon at bedside [facility] aj 19:40 19:32 Reassessment: EKG done at bedside by myself Partha aj1
--- NOTE | 2019-05-24 19:48 | RAD REPORT ---
EXAM DESCRIPTION: CT - Ct Stroke Brain Wo Cont - 05/24/2019 7:22 pm CLINICAL HISTORY: Visual disturbance COMPARISON: July 2018 TECHNIQUE: Computed axial tomography of the head was obtained. All CT scans are performed using dose optimization technique as appropriate and may include automated exposure control or mA/KV adjustment according to patient size. FINDINGS: An intracranial bleed is not seen . The ventricles are normal in caliber. No extra-axial fluid collection is noted. Fluid within the sinuses/ mastoids is not seen. IMPRESSION: No acute intracranial abnormality is seen. If patient's symptoms persist MRI of the bra in would be recommended. Eddie of the emergency room was notified at 7:28 p.m. 05/24/2019
--- NOTE | 2019-05-24 19:48 | EDPHYS ---
Physician Documentation [facility] Name: Carlos Enrique Peña Age: 58 yrs Sex: Male : 1960 Arrival Date: 05/24/2019 Time: 18:57 Bed 8 Private MD: Elvin Valderrama ED Physician Raman Ramirez HPI: 05/24 19:32 This 58 yrs old Male presents to ER via Ambulatory with complaints of Vision kdr Problem, Trouble Talking. 19:32 The patient presents to the emergency department with a speech or higher order brain kdr function problem, a vision problem, blurred vision. Onset: The symptoms/episode began/occurred suddenly, just prior to arrival. Context: occurred at home, occurred while the patient was doing normal activity. Associated signs and symptoms: Pertinent positives: headache, blurred vision. Severity of symptoms: At their worst the symptoms were mild in the emergency department the symptoms have resolved. Patient's baseline: Neuro: alert and fully oriented, Motor: no deficits, Ambulation: Speech: normal. Current symptoms: Currently, the patient is not experiencing any symptoms. The patient has experienced a previous episode, Last July, the patient had similar episode that we brief and resolved spontaneously. The patient has not recently seen a physician. Historical: - Allergies: 19:32 No Known Allergies; jd3 - Home Meds: 19:32 Jardiance 25 mg oral tab [Active]; Tresiba FlexTouch U-100 subcutaneous subcutaneous jd3 [Active]; Humalog Sub-Q [Active]; Crestor 20 mg oral tab [Active]; Altace Oral [Active]; testosterone [Active]; aspirin 81 mg Oral chew [Active]; Plavix 75 mg Oral tab [Active]; - PMHx: 19:32 Diabetes - IDDM; TIA; jd3 - PSHx: 19:32 Appendectomy; jd3 - Immunization history:: Adult Immunizations up to date. - Coronavirus screen:: The patient has NOT traveled to [place], [place], or [place] in the past 14 days. Proceed with normal triage process as indicated. The patient has NOT had contact with known/suspected case of Coronavirus?. - Social history:: Smoking status: Patient/guardian denies using tobacco, but has a distant history of tobacco abuse. - Ebola Screening: : Patient negative for fever greater than or equal to 101.5 degrees Fahrenheit, and additional compatible Ebola Virus Disease symptoms. ROS: 19:32 Constitutional: Negative for fever, chills, and weight loss, Eyes: Negative for injury, kdr pain, redness, and discharge, ENT: Negative for injury, pain, and discharge, Neck: Negative for injury, pain, and swelling, Cardiovascular: Negative for chest pain, palpitations, and edema, Respiratory: Negative for shortness of breath, cough, wheezing, and pleuritic chest pain, Abdomen/GI: Negative for abdominal pain, nausea, vomiting, diarrhea, and constipation, Back: Negative for injury and pain, : Negative for injury, bleeding, discharge, and swelling, MS/Extremity: Negative for injury and deformity, Skin: Negative for injury, rash, and discoloration, Psych: Negative for depression, anxiety, suicide ideation, homicidal ideation, and hallucinations, Allergy/Immunology: Negative for hives, rash, and allergies, Endocrine: Negative for neck swelling, polydipsia, polyuria, polyphagia, and marked weight changes, Hematologic/Lymphatic: Negative for swollen nodes, abnormal bleeding, and unusual bruising. 19:32 Neuro: Positive for speech changes, visual changes. Exam: 19:32 Constitutional: This is a well developed, well nourished patient who is awake, alert, kdr and in no acute distress. Head/Face: Normocephalic, atraumatic. Eyes: Pupils equal round and reactive to light, extra-ocular motions intact. Lids and lashes normal. Conjunctiva and sclera are non-icteric and not injected. Cornea within normal limits. Periorbital areas with no swelling, redness, or edema. Neck: Trachea midline, no thyromegaly or masses palpated, and no cervical lymphadenopathy. Supple, full range of motion without nuchal rigidity, or vertebral point tenderness. No Meningismus. Chest/axilla: Normal chest wall appearance and motion. Nontender with no deformity. No lesions are appreciated. Cardiovascular: Regular rate and rhythm with a normal S1 and S2. No gallops, murmurs, or rubs. Normal PMI, no JVD. No pulse deficits. Respiratory: Lungs have equal breath sounds bilaterally, clear to auscultation and percussion. No rales, rhonchi or wheezes noted. No increased work of breathing, no retractions or nasal flaring. Abdomen/GI: Soft, non-tender, with normal bowel sounds. No distension or tympany. No guarding or rebound. No evidence of tenderness throughout. Back: No spinal tenderness. No costovertebral tenderness. Full range of motion. Skin: Warm, dry with normal turgor. Normal color with no rashes, no lesions, and no evidence of cellulitis. MS/ Extremity: Pulses equal, no cyanosis. Neurovascular intact. Full, normal range of motion. Psych: Awake, alert, with orientation to person, place and time. Behavior, mood, and affect are within normal limits. 19:32 Neuro: Orientation: is normal, Mentation: is normal, Memory: is normal, Cerebellar function: is grossly normal, Motor: is normal, Sensation: is normal, Gait: is steady, appropriate for age, All s/s have resolved. Vital Signs: 19:32 BP 139 / 92; Pulse 68; Resp 17 S; Temp 97.9(O); Pulse Ox 97% on R/A; Weight 86.18 kg jd3 (R); Height 5 ft. 10 in. (177.80 cm) (R); Pain 0/10; 20:33 BP 145 / 86; Pulse 71; Resp 18; Pulse Ox 100% on R/A; aj1 19:32 Body Mass Index 27.26 (86.18 kg, 177.80 cm) jd3 NIH Stroke Scale Scores: 19:55 NIHSS Score: 0 aj1 MDM: 19:32 Data reviewed: vital signs, nurses notes, lab test result(s), radiologic studies. kdr Counseling: I had a detailed discussion with the patient and/or guardian regarding: the historical points, exam findings, and any diagnostic results supporting the discharge/admit diagnosis, lab results, radiology results, the need for further work-up and treatment in the hospital. 19:43 ED course: The patient's s/s had completely resolved at the time of presentation and kdr tPA was not appropriate. 19:44 Patient medically screened. kdr 05/24 19:19 Order name: Basic Metabolic Panel aj1 05/24 19:19 Order name: CBC with Diff aj1 05/24 19:19 Order name: Protime (+inr) aj 05/24 19:19 Order name: Ptt, Activated aj05/24 19:38 Order name: Troponin I [facility]IA 05/24 19:40 Order name: Glucose, Ancillary Testing [facility] 05/24 19:19 Order name: CT Stroke Brain w/o Contrast [facility] 05/24 19:19 Order name: Stroke CXR 1 View [facility] 05/24 19:19 Order name: EKG; Complete Time: 19:19 [facility] 05/24 19:19 Order name: Accucheck; Complete Time: 19:34 [facility] 05/24 19:19 Order name: Cardiac monitoring; Complete Time: 19:34 [facility] 05/24 19:38 Order name: CONS Pharmacy Consult [facility] 05/24 19:38 Order name: Echo with Doppler [facility] 05/24 19:39 Order name: Carotid Artery Bilateral [facility] 05/24 19:19 Order name: EKG - Nurse/Tech; Complete Time: 19:34 [facility] 05/24 19:19 Order name: IV Saline Lock; Complete Time: 19:34 [facility] 05/24 19:19 Order name: Labs collected and sent; Complete Time: 19:34 [facility] 05/24 19:19 Order name: NPO; Complete Time: 19:34 05/24 19:19 Order name: O2 Per Protocol; Complete Time: 19:34 05/24 19:19 Order name: O2 Sat Monitoring; Complete Time: 19:34 [facility] 05/24 19:19 Order name: Stroke Swallow Screen; Complete Time: 20:36 aj1 Administered Medications: No medications were administered Point of Care Testing: Blood Glucose: 19:28 Blood Glucose: 94 mg/dL; aj1 Ranges: Critical Glucose Levels:Adult <50 mg/dl or >400 mg/dl <40 mg/dl or >180 mg/dl Disposition: 05/24/19 19:44 Hospitalization ordered by Joe Mckeon for Observation. Preliminary diagnosis is Transient cerebral ischemic attack, unspecified. - Bed requested for Telemetry/MedSurg (observation). - Status is Observation. aj1 - Condition is Fair. - Problem is new. - Symptoms are resolved. UTI on Admission? No NIH Stroke Scale - NIH Stroke Score Date: 05/24/2019 Time: 19:55 Total Score = 0 1a. Level of Consciousness (LOC) - 0(Alert) 1b. Level of Consciousness (LOC) (Year \T\ Age) - 0(Both) 1c. LOC Commands (Open \T\ Closes Eyes/Chemical Detection Expert) - 0(Both) 2. Best Gaze (Lateral Gaze Paresis) - 0(Normal) 3. Visual Field Loss - 0(No visual loss) 4. Facial Palsy - 0(Normal) 5a. Left Arm: Motor (10-second hold) - 0(No drift) 5b. Right Arm: Motor (10-second hold) - 0(No drift) 6a. Left Leg: Motor (5-second hold - always test supine) - 0(No drift) 6b. Right Leg: Motor (5-second hold - always test supine) - 0(No drift) 7. Limb Ataxia (finger/nose \T\ heel/tolentino - test with eyes open) - 0(Absent) 8. Sensory Loss (pinprick arms/legs/face) - 0(Normal) 9. Best Language: Aphasia (description/naming/reading) - 0(No aphasia) 10. Dysarthria (speech clarity - read or repeat words) - 0(Normal) 11. Extinction and Inattention (visual/tactile/auditory/spatial/personal) - 0(No abnormality) Initials: aj1 Signatures: Dispatcher [employer] EDMS Lashell Marcial RN RN aj1 Jennifer Alvarez RN RN mw Rittger, Kevin, MD MD [facility] Bryan Mata RN RN jd3 Corrections: (The following items were deleted from the chart) 19:51 19:44 Hospitalization Ordered by Joe Mckeon MD for Observation. Preliminary mw diagnosis is Transient cerebral ischemic attack, unspecified. Bed requested for Telemetry/MedSurg (observation). Status is Observation. Condition is Fair. Problem is new. Symptoms are resolved. UTI on Admission? No. kdr 21:04 19:51 05/24/2019 19:44 Hospitalization Ordered by Joe Mckeon MD for aj1 Observation. Preliminary diagnosis is Transient cerebral ischemic attack, unspecified. Bed requested for Telemetry/MedSurg (observation). Status is Observation. Condition is Fair. Problem is new. Symptoms are resolved. UTI on Admission? No. mw
--- NOTE | 2019-05-24 19:49 | RAD REPORT ---
EXAM DESCRIPTION: Brenna Single View05/24/2019 7:37 pm CLINICAL HISTORY: tia COMPARISON: July 2018 FINDINGS: The lungs appear clear of acute infiltrate. The heart is normal size IMPRESSION: No acute abnormalities displayed
--- NOTE | 2019-05-24 20:38 | RAD REPORT ---
EXAM DESCRIPTION: USCarotid Artery Bilateral05/24/2019 8:18 pm CLINICAL HISTORY: TIA 9 COMPARISON: July 2018 FINDINGS: The velocity of the right internal carotid artery equals 110 cm/sec. The right ICA/CCA rat io 1.3 The velocity of the left internal carotid artery equals 124 cm/sec. The left ICA/CCA ratio 1.2 Mild plaque is present within the carotid arteries. Carotid arteries are tortuous The vertebral arteries demonstrate antegrade flow IMPRESSION: Mild plaque within the carotid arteries without evidence of a hemodynamically significan t stenosis NASCET criteria used. Mild 0-49% stenosis Moderate 50-69% stenosis Severe 70-99% stenosis
[2019-05-24] MEDS ORDERED: ATORVASTATIN 40 MG TAB PO SCH (21:00)
[2019-05-24 22:04] VITALS: BMI 27.5
[2019-05-24] MEDS: NA CHLORIDE 0.9% 1,000 ML IV SCH (22:11)
[2019-05-24 23:54] LABS: Urine Appearance CLEAR; Urine Bilirubin NEGATIVE (NEG); Urine Blood NEGATIVE (NEG); Urine Color YELLOW; Urine Glucose 3+ (NEG); Urine Protein NEGATIVE (NEG); Urine Specific Gravity 1.025 (1.005-1.030); Urine Urobilinogen 0.2 mg/dL (0.2-1.0); Urine pH 6.5 (5.0-7.0)
[2019-05-24 23:59] LABS: Urine Microscopic Reflex NO UMIC
[2019-05-25 05:08] LABS: Absolute Lymphocytes (CBC) 1.5 K/uL (0.7-4.9); Basophils % 0.6 % (0-1.3); Lymphocytes % 18.1 % (15.3-44.8); RBC Red Blood Cell Count 5.34 M/uL (4.33-5.43)
[2019-05-25 05:32] LABS: Albumin 3.4 g/dL (3.4-5.0); Bilirubin Total 0.4 mg/dL (0.2-1.0); Potassium 3.7 mmol/L (3.5-5.1)
[2019-05-25] MEDS: NA CHLORIDE 0.9% 1,000 ML IV SCH (06:18)
--- NOTE | 2019-05-25 07:24 | P.HP ---
Certification for Inpatient Patient admitted to: Observation With expected LOS: <2 Midnights Patient will require the following post-hospital care: None Practitioner: I am a practitioner with admitting privileges, knowledge of patient current condition, hospital course, and medical plan of care. Services: Services provided to patient in accordance with Admission requirements found in Title 42 Section 412.3 of the Code of Federal Regulations Patient History Date of Service: 05/24/19 Reason for admission: Possible TIA History of Present Illness: Patient is a 58-year-old gentleman who came to the hospital after he noticed that he was having a hard time getting the words out of his mouth and he was not able to see back clearly. He was admitted last July for similar complaints. At that time he had an extensive workup done by his primary care provider Dr. Valderrama and his neurologist. 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 Otherwise there was no significant abnormalities. Since that time he is taking much better care of his health. His symptoms have pretty much resolved. CT was negative. He will be admitted for observation. Allergies No Known Allergies Allergy (Verified 05/24/19 21:16) Home Medications: Empagliflozin [Jardiance] 25 mg PO DAILY 08/08/18 Icosapent Ethyl [Vascepa] 4 gm PO DAILY 08/08/18 Insulin Degludec [Tresiba] 52 unit SQ DAILY 08/08/18 Levothyroxine Sodium [Tirosint] 300 mcg PO DAILY 08/08/18 Rosuvastatin [Crestor] 20 mg PO DAILY 08/08/18 ramipriL [Altace] 2.5 mg PO DAILY 08/08/18 Clopidogrel Bisulfate [Plavix] 75 mg PO DAILY #90 tablet 08/09/18 Folic Acid 1 mg PO DAILY #90 tablet 08/09/18 Insulin Lispro [Humalog*] 5 units SQ BREAKFAST 05/24/19 Insulin Lispro [Humalog*] 8 unit SQ LUNCH 05/24/19 Insulin Lispro [Humalog*] 13 units SQ SEECOM 05/24/19 - Past Medical/Surgical History Has patient received pneumonia vaccine in the past: No Diabetic: Yes -: IDDM -: TIA -: appendectomy - Family History Father Medical History: Diabetes - Social History Smoking Status: Never smoker Alcohol use: Yes CD- Drugs: No Place of Residence: Home Review of Systems 10-point ROS is otherwise unremarkable Physical Examination - Vital Signs Temperature: 97.5 F Blood Pressure: 111/73 Pulse: 64 Respirations: 16 Pulse Ox (%): 100 - Physical Exam General: Alert, In no apparent distress, Oriented x3 HEENT: Atraumatic, PERRLA, Mucous membr. moist/pink, EOMI, Sclerae nonicteric Neck: Supple, 2+ carotid pulse no bruit, No LAD, Without JVD or thyroid abnormality Respiratory: Clear to auscultation bilaterally, Normal air movement Cardiovascular: Regular rate/rhythm, Normal S1 S2 Gastrointestinal: Normal bowel sounds, No tenderness Musculoskeletal: No tenderness Integumentary: No rashes Neurological: Normal gait, Normal speech, Normal strength at 5/5 x4 extr, Normal tone, Normal affect Lymphatics: No axilla or inguinal lymphadenopathy - Studies Laboratory Data (last 24 hrs) 05/24/19 19:27: PT 11.5, INR 0.97, APTT 30.2 05/24/19 19:27: WBC 8.9, Hgb 19.0 H, Hct 56.4 H, Plt Count 178 05/24/19 19:27: Sodium 138, Potassium 4.0, BUN 22 H, Creatinine 1.11, Glucose 100 Assessment & Plan - Problems (Diagnosis) (1) TIA (transient ischemic attack) Current Visit: Yes Status: Acute - Plan Plan: 1. Continue home medication. Will observe him. We will check carotid Doppler. Symptoms have completely resolved. Patient does not want MRI as he is claustrophobic. If symptomatically back to baseline and additional studies are negative then possible discharge home in the morning. He will need to follow closely with Neurology and PCP at discharge. Discharge Plan: Home Plan to discharge in: 24 Hours - Advance Directives Does patient have a Living Will: No Does patient have a Durable POA for Healthcare: Yes - Code Status/Comfort Care Code Status Assessed: Yes Code Status: Full Code Critical Care: No Time Spent Managing PTS Care (In Minutes): 45
[2019-05-25] MEDS ORDERED: INSULIN LISPRO 100 UNIT/1 ML SQ SCH ×2 (07:30→17:00)
[2019-05-25] MEDS: INSULIN LISPRO 100 UNIT/1 ML SQ SCH ×2 (08:00→12:00)
[2019-05-25] MEDS: LEVOTHYROXINE SODIUM 300 MCG PO SCH (09:00)
[2019-05-25] MEDS: ICOSAPENT ETHYL 1 GM CAP PO SCH (09:00)
[2019-05-25] MEDS: INSULIN DEGLUDEC 52 UNIT SQ SCH (09:00)
[2019-05-25] MEDS: FOLIC ACID 1 MG TABLET PO SCH (09:00)
[2019-05-25] MEDS: HOME MED 1 EA UNK (Empagliflozin [Jardiance] 25 MG) PO SCH (09:00)
[2019-05-25] MEDS ORDERED: ASPIRIN EC 81 MG TAB PO SCH ×2 (09:00→21:00)
[2019-05-25] MEDS ORDERED: CLOPIDOGREL 75 MG TABLET PO SCH ×2 (09:00→21:00)
[2019-05-25] MEDS: ROSUVASTATIN 10 MG TAB PO SCH (09:00)
--- NOTE | 2019-05-25 15:07 | P.PN ---
Subjective Date of Service: 05/25/19 Chief Complaint: Possible TIA Subjective: No new changes Review of Systems 10-point ROS is otherwise unremarkable Physical Examination - Vital Signs Temperature: 97.6 F Blood Pressure: 119/68 Pulse: 72 Respirations: 15 Pulse Ox (%): 98 - Physical Exam General: Alert, In no apparent distress, Oriented x3 HEENT: Atraumatic, Normocephalic, PERRLA Neck: 2+ carotid pulse no bruit, JVD not distended Respiratory: Clear to auscultation bilaterally, Normal air movement Cardiovascular: No edema, Normal pulses, Regular rate/rhythm, Normal S1 S2 Gastrointestinal: Normal bowel sounds, Soft and benign, Non-distended Musculoskeletal: No clubbing, No swelling Integumentary: No rashes, No breakdown Neurological: Normal gait, Normal speech, Normal strength at 5/5 x4 extr, Normal tone, Sensation intact - Studies Laboratory Data (last 24 hrs) 05/24/19 19:27: PT 11.5, INR 0.97, APTT 30.2 05/24/19 19:27: WBC 8.9, Hgb 19.0 H, Hct 56.4 H, Plt Count 178 05/24/19 19:27: Sodium 138, Potassium 4.0, BUN 22 H, Creatinine 1.11, Glucose 100 Medications List Reviewed: Yes Assessment & Plan - Problems (Diagnosis) (1) Diabetes Current Visit: Yes Status: Acute (2) TIA (transient ischemic attack) Current Visit: Yes Status: Acute Plan to discharge in: 24 Hours Physician Review: Patient Assessed, Agree with Above Assessment and Plan Physician Review Additional Text: # TIA- resolved speech symptoms - will obtain MRI brain -carotid US negative for signifiant stenosis -c/w tele monitoring # DM -on insulin sliding scale , c/w home meds Dispo - possible home today or in am if negative MRI brain
--- NOTE | 2019-05-26 07:51 | EKG ---
Test Date: 2019-05-24 Test Time: 19:33:01 Block Feeder: YU MEASUREMENT RESULTS: Intervals: Rate: 71 NC: 202 QRSD: 102 QT: 396 QTc: 430 [employer]: P: 55 NC: 202 QRS: -5 T: 37 INTERPRETIVE STATEMENTS: Normal sinus rhythm Normal ECG Compared to ECG 08/08/2018 12:27:15 No significant changes Electronically Signed On 05-26-19 07:49:54 LAY OUT INSPECTOR by Mauricio Dixon
[2019-05-26] MEDS: INSULIN LISPRO 100 UNIT/1 ML SQ SCH ×2 (08:00→11:56)
[2019-05-26] MEDS: ROSUVASTATIN 10 MG TAB PO SCH (08:21)
[2019-05-26] MEDS: FOLIC ACID 1 MG TABLET PO SCH (08:21)
[2019-05-26] MEDS: INSULIN DEGLUDEC 52 UNIT SQ SCH (08:22)
[2019-05-26] MEDS: HOME MED 1 EA UNK (Empagliflozin [Jardiance] 25 MG) PO SCH (08:22)
[2019-05-26] MEDS: LEVOTHYROXINE SODIUM 300 MCG PO SCH (08:23)
[2019-05-26] MEDS: ICOSAPENT ETHYL 1 GM CAP PO SCH (08:24)
[2019-05-26 09:52] VITALS: O2SAT 95
[2019-05-26 12:30] VITALS: BP 110/68; TEMP 98.2
--- NOTE | 2019-05-26 13:36 | P.DS ---
Admission Date: 05/24/19 Discharge Date: 05/26/19 Disposition: ROUTINE DISCHARGE Discharge Condition: GOOD Reason for Admission: Possible TIA - Problems (1) Diabetes Current Visit: Yes Status: Acute (2) TIA (transient ischemic attack) Current Visit: Yes Status: Acute Brief History of Present Illness: History of Present Illness: Patient is a 58-year-old gentleman who came to the hospital after he noticed that he was having a hard time getting the words out of his mouth and he was not able to see back clearly. He was admitted last July for similar complaints. At that time he had an extensive workup done by his primary care provider Dr. Valderrama and his neurologist. 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 Otherwise there was no significant abnormalities. Since that time he is taking much better care of his health. His symptoms have pretty much resolved. CT was negative. He will be admitted for observation. Allergies Hospital Course: Patient with past medical history of hypertension,diabetes mellitus, hyperlipidemia, recurrent TIA symptoms with previous negative MRI presented for difficulty with words flow . On presentation , his carotid US and head CT were negative. Patient was admitted for pulmonary toilet. There was no recurrence of symptoms during his hospital stay. He had a repeat CT of the head as he was unable to get MRI due to weekend status. Repeat Head CT was still negative. Patient was noted with moderate elevated triglyceride. His dose of Crestor was increased to 20 mg daily and advised follow up with his primary. Vital Signs/Physical Exam: Temp Pulse Resp BP Pulse Ox 98.2 F 66 14 110/68 94 05/26/19 12:05/26/19 12:05/26/19 12:05/26/19 12:05/26/19 12:00 General: Alert, In no apparent distress, Oriented x3 HEENT: Atraumatic, Normocephalic, PERRLA Neck: 2+ carotid pulse no bruit, JVD not distended Respiratory: Clear to auscultation bilaterally, Normal air movement Cardiovascular: Normal pulses, Regular rate/rhythm, Normal S1 S2 Gastrointestinal: Normal bowel sounds, Soft and benign, Non-distended Musculoskeletal: No clubbing, No swelling Integumentary: No rashes, No breakdown Neurological: Normal gait, Normal speech, Normal strength at 5/5 x4 extr, Normal tone, Sensation intact Laboratory Data at Discharge: WBC 8.5 K/uL (4.3-10.9) 05/25/19 04:43 Hgb 17.0 g/dL (13.6-17.9) 05/25/19 04:43 Hct 50.0 % (39.6-49.0) H 05/25/19 04:43 Plt Count 179 K/uL (152-406) 05/25/19 04:43 PT 11.5 SECONDS (9.5-12.5) 05/24/19 19:27 INR 0.97 05/24/19 19:27 APTT 30.2 SECONDS (24.3-36.9) 05/24/19 19:27 Sodium 140 mmol/L (136-145) 05/25/19 04:43 Potassium 3.7 mmol/L (3.5-5.1) 05/25/19 04:43 BUN 21 mg/dL (7-18) H 05/25/19 04:43 Creatinine 0.95 mg/dL (0.55-1.3) 05/25/19 04:43 Glucose 82 mg/dL (74-106) 05/25/19 04:43 Total Bilirubin 0.4 mg/dL (0.2-1.0) 05/25/19 04:43 AST 18 U/L (15-37) 05/25/19 04:43 ALT 25 U/L (12-78) 05/25/19 04:43 Alkaline Phosphatase 79 U/L (45-117) 05/25/19 04:43 Troponin I < 0.02 ng/mL (0.0-0.045) 05/24/19 22:56 Triglycerides 173 mg/dL (<150) H 05/25/19 04:43 Cholesterol 138 mg/dL (<200) 05/25/19 04:43 HDL Cholesterol 39 mg/dL (40-60) L 05/25/19 04:43 Cholesterol/HDL Ratio 3.54 05/25/19 04:43 Home Medications: Empagliflozin [Jardiance] 25 mg PO DAILY 08/08/18 Icosapent Ethyl [Vascepa] 4 gm PO DAILY 08/08/18 Insulin Degludec [Tresiba] 52 unit SQ DAILY 08/08/18 Levothyroxine Sodium [Tirosint] 300 mcg PO DAILY 08/08/18 ramipriL [Altace*] 2.5 mg PO DAILY 08/08/18 Clopidogrel Bisulfate [Plavix*] 75 mg PO DAILY #90 tablet 08/09/18 Folic Acid 1 mg PO DAILY #90 tablet 08/09/18 Insulin Lispro [Humalog*] 5 units SQ BREAKFAST 05/24/19 Insulin Lispro [Humalog*] 8 unit SQ LUNCH 05/24/19 Insulin Lispro [Humalog*] 13 units SQ SEECOM 05/24/19 Rosuvastatin Calcium [Crestor] 20 mg PO DAILY #30 tablet 05/26/19 New Medications: Rosuvastatin Calcium [Crestor] 20 mg PO DAILY #30 tablet Patient Discharge Instructions: follow with PCP in 5-7 days Diet: ADA Activity: Ad lico Time spent managing pt's care (in minutes): 35
--- NOTE | 2019-05-27 12:04 | RAD REPORT ---
EXAM DESCRIPTION: CT - Ct Stroke Brain Wo Cont - 05/26/2019 4:59 am CLINICAL HISTORY: The patient is 58 years old and is Male; follow up of TIA TECHNIQUE: Axial computed tomography images of the head/brain without intravenous contrast. Sagitt al and coronal reformatted images were created and reviewed. This CT exam was performed using one o r more of the following dose reduction techniques: automated exposure control, adjustment of the mA and/or kV according to patient size, and/or use of iterative reconstruction technique. COMPARISON: CT of the head May 24, 2019 FINDINGS: BRAIN: Unremarkable. The riddle-white matter differentiation is preserved . No hemorrhag e. No significant white matter disease. No edema. No extra-axial fluid collections. VENTRICLES: Unremarkable. No ventriculomegaly. BONES/JOINTS: No acute fracture. SOFT TISSUES: Unremarkable. SINUSES: Bilateral maxillary sinus retention cysts are present. MASTOID AIR CELLS: Unremarkable as visualized. No mastoid effusion. ORBITS: Unremarkable as visualized. IMPRESSION: No acute intracranial findings. Electronically signed by: Kalee Carrasco MD 05/26/2019 5:05 AM STUD SETTER Due to temporary technical issues with the PACS/Fluency reporting system, reports are being signed by the in house radiologist as a courtesy to ensure prompt reporting. The interpreting radiologist is f ully responsible for the content of the report.
== END 2019-05-26 14:20 | disposition home or self-care (01) ==
LOC: ER 18:56 → 4TH 19:32
PROVIDERS: ADMIT Hospitalist; ATTEND Hospitalist
DX: G45.9 Transient cerebral ischemic attack, unspecified (principal); E11.9 Type 2 diabetes mellitus without complications; I10 Essential (primary) hypertension; E78.5 Hyperlipidemia, unspecified; Z86.73 Personal history of transient ischemic attack (TIA), and cerebral infarction without residual deficits
CPT/HCPCS: 93005; 85025 ×2; 80048; 36415; 85610; 80061; 82947 ×6; 85730; 81003; 83036; 84484; 80053; 70450 ×2; 71045; 93880; 99285; J1815 ×2; J7030 ×2; G0378 ×4

== ENCOUNTER 2024-05-24 09:13 | Emergency (ER) | payer OTHER ==
[2024-05-24] MEDS ORDERED: TDAP (DIPHTH,PERTUSS(ACELL),TET VAC) 0.5 ML VIAL IMVAC ONE (09:35)
--- NOTE | 2024-05-24 09:44 | ER ---
Nurse's Notes [facility] Name: Carlos Enrique Peña Age: 63 yrs Sex: Male : 1960 Arrival Date: 05/24/2024 Time: 09:13 Bed IW2 Private MD: Diagnosis: Laceration without foreign body of scalp Presentation: 05/24 09:27 Chief complaint: Struck on top of head with 4x4 fence post, laceration noted to top of hb head. Negative LOC. Bleeding controlled. Coronavirus screen: At this time, the client does not indicate any symptoms associated with coronavirus-19. Ebola Screen: No symptoms or risks identified at this time. Mechanism of Injury: The problem was sustained. Mechanism of Injury: resulted from a direct blow, a solid object. Initial Sepsis Screen: Does the patient meet any 2 criteria? No. Patient's initial sepsis screen is negative. Does the patient have a suspected source of infection? No. Patient's initial sepsis screen is negative. Risk Assessment: Do you want to hurt yourself or someone else? Patient reports no desire to harm self or others. 09:27 Method Of Arrival: Ambulatory hb 09:27 Acuity: LAURA 4 hb Triage Assessment: 09:28 General: Appears in no apparent distress. Behavior is calm, cooperative. Pain: Pain hb currently is 3 out of 10 on a pain scale. Neuro: GCS 15. Reports headache. Historical: - Allergies: 09:28 No Known Allergies; hb - PMHx: 09:28 Diabetes - IDDM; TIA; hb - PSHx: 09:28 Appendectomy; hb 09:29 Hernia Repair; Right Knee; hb - Immunization history:: Adult Immunizations up to date. - Infectious Disease History:: Denies. - Social history:: Smoking status: Patient denies any tobacco usage or history of. Screenin:40 [facility] ED Fall Risk Assessment (Adult) History of falling in the last 3 months, hb including since admission No falls in past 3 months (0 pts) Confusion or Disorientation No (0 pts) Intoxicated or Sedated No (0 pts) Impaired Gait No (0 pts) Mobility Assist Device Used No (0 pt) Altered Elimination No (0 pt) Score/Fall Risk Level 0 - 2 = Low Risk Oriented to surroundings, Maintained a safe environment, Educated pt \T\ family on fall prevention, incl call for assistance when getting out of bed. Abuse screen: Denies threats or abuse. Denies injuries from another. Nutritional screening: No deficits noted. Tuberculosis screening: No symptoms or risk factors identified. Assessment: 09:51 General: see triage assessment . hb Vital Signs: 09:27 BP 127 / 95; Pulse 88; Resp 16; Temp 97.2(TE); Pulse Ox 97% on R/A; Pain 3/10; hb 09:27 Pain Scale: Adult hb [place] Coma Score: 09:27 Eye Response: spontaneous(4). Motor Response: obeys commands(6). Verbal Response: hb oriented(5). Total: 15. ED Course: 09:14 Patient arrived in ED. ra3 09:16 John Trinidad DO is Attending Physician. ms3 09:28 Triage completed. hb 09:29 Arm band placed on. hb 09:40 Patient has correct armband on for positive identification. Provided Education on: hb wound care, follow up. 09:40 No provider procedures requiring assistance completed. Patient did not have IV access hb during this emergency room visit. 09:42 Mi Fletcher, RN is Primary Nurse. hb Administered Medications: 09:42 Drug: Boostrix Tdap IM 0.5 ml IM once; as a single dose Route: IM; Site: right deltoid; hb 09:53 Follow up: Response: No adverse reaction hb Medication: 09:51 Vaccine Information Statement (VIS) provided today. Questions and/or concerns hb addressed. VIS edition date: May 24, 2024. Outcome: 09:40 Discharged to home ambulatory, with family, hb 09:40 Condition: stable 09:40 Discharge instructions given to patient, Instructed on discharge instructions, follow up and referral plans. medication usage, wound care, Demonstrated understanding of instructions, follow-up care, medications, wound care, 09:43 Discharge ordered by . ms3 09:53 Patient left the ED. hb Signatures: Mi Fletcher RN RN hb John Trinidad DO DO ms3 Yumiko Dahl ra3 Corrections: (The following items were deleted from the chart) 09:29 09:28 PSHx: Hernia Repair (TIA); hb hb
--- NOTE | 2024-05-24 09:44 | EDPHYS ---
Physician Documentation [facility] Name: Carlos Enrique Peña Age: 63 yrs Sex: Male : 1960 Arrival Date: 05/24/2024 Time: 09:13 Bed IW2 Private MD: ED Physician John Trinidad HPI: 05/24 09:44 This 63 yrs old Male presents to ER via Ambulatory with complaints of Head Injury-Adult ms3 - Laceration. 10:06 Carlos Enrique Langston, a 63-year-old male, presents to the Emergency Department for ms3 evaluation of a head laceration. The injury occurred while he was working on a fence. He reports being hit by a 4x4 fence post that was being jacked up out of the ground. He rates his pain a 3/10. He denies any alleviating or inciting factors. Patient is unaware when his last tetanus vaccine was. Historical: - Allergies: 09:28 No Known Allergies; hb - PMHx: 09:28 Diabetes - IDDM; TIA; hb - PSHx: 09:28 Appendectomy; hb 09:29 Hernia Repair; Right Knee; hb - Immunization history:: Adult Immunizations up to date. - Infectious Disease History:: Denies. - Social history:: Smoking status: Patient denies any tobacco usage or history of. ROS: 10:06 Constitutional: Negative for fever, and chills. Cardiovascular: Negative for chest ms3 pain, and palpitations. Respiratory: Negative for shortness of breath, cough, wheezing, and pleuritic chest pain, Abdomen/GI: Negative for abdominal pain, nausea, vomiting, diarrhea, and constipation, MS/Extremity: Negative for injury and deformity, 10:06 Skin: Positive for laceration(s), of the Scalp, Exam: 10:06 Constitutional: This is a well developed, well nourished patient who is awake, alert, ms3 and in no acute distress. Cardiovascular: Regular rate and rhythm with a normal S1 and S2. No gallops, murmurs, or rubs. Normal PMI, no JVD. No pulse deficits. Respiratory: Lungs have equal breath sounds bilaterally, clear to auscultation and percussion. No rales, rhonchi or wheezes noted. No increased work of breathing, no retractions or nasal flaring. Abdomen/GI: Soft, non-tender, with normal bowel sounds. No distension or tympany. No guarding or rebound. No evidence of tenderness throughout. 10:06 Skin: injury, laceration(s), the wound is approximately 1 cm(s), of the Frontal scalp, Superficial laceration without bleeding, Vital Signs: 09:27 BP 127 / 95; Pulse 88; Resp 16; Temp 97.2(TE); Pulse Ox 97% on R/A; Pain 3/10; hb 09:27 Pain Scale: Adult hb [place] Coma Score: 09:27 Eye Response: spontaneous(4). Motor Response: obeys commands(6). Verbal Response: hb oriented(5). Total: 15. MDM: 09:21 Medical Screening Exam initiated ms3 10:06 Differential diagnosis: Hematoma on Laceration of. Data reviewed: vital signs, nurses ms3 notes, and as a result, I will discharge patient. I considered the following discharge prescriptions or medication management in the emergency department Medications were administered in the Emergency Department. See MAR. Counseling: I had a detailed discussion with the patient and/or guardian regarding the historical points, exam findings, and any diagnostic results supporting the discharge/admit diagnosis, the need for outpatient follow up, to return to the emergency department if symptoms worsen or persist or if there are any questions or concerns that arise at home. Special discussion: I discussed with the patient/guardian in detail that at this point there is no indication for admission to the hospital. It is understood, however, that if the symptoms persist or worsen the patient needs to return immediately for re-evaluation. ED course: Discussed physical exam findings with the patient and his . Wound is hemostatic. Laceration superficial not requiring closure. Offered Dermabond closure to patient and and patient declines at this time. Patient to follow-up with primary care physician in 2 to 3 days for reevaluation. Return precautions discussed include erythema, drainage, worsening symptoms, or any other concerns.. 05/24 09:35 Order name: Wound Care; Complete Time: 09:35 hb Administered Medications: 09:42 Drug: Boostrix Tdap IM 0.5 ml IM once; as a single dose Route: IM; Site: right deltoid; hb 09:53 Follow up: Response: No adverse reaction hb Disposition Summary: 05/24/24 09:43 Discharge Ordered Notes: Location: Home ms3 Condition: Stable ms3 Diagnosis - Laceration without foreign body of scalp ms3 Followup: ms3 - With: Private Physician - When: 2 - 3 days - Reason: Recheck today's complaints Discharge Instructions: - Discharge Summary Sheet ms3 - Facial Laceration, [id number] ms3 Forms: - Medication Reconciliation Form ms3 - Antibiotic Education ms3 - Prescription Opioid Use ms3 - Patient Portal Instructions ms3 - Leadership Thank You Letter ms3 Signatures: Mi Fletcher RN RN John Perrin DO DO ms3 Corrections: (The following items were deleted from the chart) 09:29 09:28 PSHx: Hernia Repair (TIA); romel
[2024-05-24 11:18] VITALS: BP 127/95; TEMP 97.2; O2SAT 97
== END 2024-05-24 09:53 | disposition home or self-care (01) ==
LOC: ER 09:13
DX: S01.01XA Laceration without foreign body of scalp, initial encounter (principal)
CPT/HCPCS: 96372; 99284